=== PATIENT | female | born 1965 | race Caucasian/White ===

== ENCOUNTER 2018-07-04 13:16 | Inpatient (IN) | payer MEDICAID ==
--- NOTE | 2018-07-04 13:20 | C.PDOC ---
History Of Present Illness 53 y/o female, w/PMhx of bipolar disorder, suicide attempt, mitral valve prolapse, and cholecystectomy, presents to the ER for suicidal ideation and worsening bipolar disorder symptoms. Patient states that she was not able to sleep last night, in a manic phase similiar to her previous bipolar episodes. Patient reports that she has been thinking about hurting herself. She notes that she would like to "jump off the [place] in [place]." Denies having active suicide attempt, over-ingestion of medications, fever,chills, headache, neck stiffness, CP,SOB, abdominal pain, and GI bleeding. No GI or complaints. No physical complaints. Time Seen by Provider: 07/04/18 13:20 Chief Complaint (Nursing): Psychiatric Evaluation History Per: Patient History/Exam Limitations: no limitations Onset/Duration Of Symptoms: Days Current Symptoms Are (Timing): Still Present Severity: Moderate Past Medical History Reviewed: Historical Data, Nursing Documentation, Vital Signs - Medical History PMH: Mitral Valve Prolapse Family History: States: Unknown Family Hx Review Of Systems Constitutional: Negative for: Fever, Chills, Weakness, Malaise, Weight loss Eyes: Negative for: Pain, Vision Change, Conjunctivae Inflammation, Eyelid Inflammation ENT: Negative for: Ear Pain, Ear Discharge, Nose Pain, Nose Congestion, Mouth Pain, Mouth Swelling, Throat Pain Cardiovascular: Negative for: Chest Pain, Palpitations, Orthopnea, Edema, Light Headedness Respiratory: Negative for: Cough, Shortness of Breath, Hemoptysis, SOB with Excertion, Pleuritic Pain, Wheezing Gastrointestinal: Negative for: Nausea, Vomiting, Abdominal Pain, Diarrhea, Constipation, Melena, Hematochezia, Hematemesis Genitourinary: Negative for: Dysuria, Frequency, Incontinence, Hematuria, Vaginal Discharge, Vaginal Bleeding, Pelvic Pain Musculoskeletal: Negative for: Neck Pain, Shoulder Pain, Arm Pain, Back Pain, Hand Pain, Leg Pain Skin: Negative for: Rash, Lesions Neurological: Negative for: Weakness, Numbness, Seizures, Altered Mental Status, Headache Psych: Positive for: Suicidal ideation. Negative for: Anxiety, Depression Physical Exam - Physical Exam Appears: Well, Non-toxic, No Acute Distress Skin: Normal Color, Warm, Dry Head: Atraumatic, Normacephalic Eye(s): bilateral: Normal Inspection, PERRL, EOMI Ear(s): Bilateral: Normal Nose: Normal Oral Mucosa: Moist Tongue: Normal Appearing Lips: Normal Appearing Gingiva: Normal Appearing Throat: Normal, Erythema Neck: Normal, Normal ROM, Supple, Other (no meningeal signs) Lymphatic: Normal Exam, No Adenopathy Chest: Symmetrical Cardiovascular: Rhythm Regular, No Edema, No Friction Rub, No Murmur, No JVD Respiratory: Normal Breath Sounds, No Rales, No Rhonchi, No Wheezing Gastrointestinal/Abdominal: Normal Exam, Soft, No Tenderness, No Guarding, No Rebound Back: Normal Inspection, No CVA Tenderness, No Vertebral Tenderness, No Decreased ROM Extremity: Normal ROM, No Tenderness, No Swelling Extremity: Bilateral: Atraumatic Neurological/Psych: Oriented x3, Normal Speech, Normal Cognition, Normal Cranial Nerves, No Cerebellar Signs, Normal Motor, Normal Sensation Gait: Steady Extremity: Right: No Drift, Left: No Drift ED Course And Treatment - Laboratory Results Result Diagrams: 07/04/18 13:45 07/04/18 13:45 Medical Decision Making Medical Decision Makin53 y/o female,w/PMhx of bipolar disorder, suicide attempt, mitral valve prolapse, and cholecystectomy, presents to the ER for suicidal ideation and worsening bipolar disorder symptoms. No chest pain, ingestion of any substances or drugs in an OD attempt, shorntess of breath or abdominal pain. No meningeal signs. Normal neuro exam. No signs of trauma. Impression: Suicidal Ideation vs Worsening Bipolar Disorder Plan: --Labs --UA --CRISIS --1:1 Obs Updates: 13:33 Case discussed with CRISIS.CRISIS will evaluate patient. 1610 labs largely unremarkable UTI on labs, pt denies any dysuria however. No CVAT or back pain no vaginal d/c will rx medically clear 1615 appreciate consult w/ CRISIS: to be admitted to Dr. Vargas service pt in [facility], agreeable to plan Disposition - Disposition Disposition Time: 16:15 Condition: STABLE Forms: [facility] (Mongolian) - Clinical Impression Clinical Impression: UTI (urinary tract infection), MDD (major depressive disorder) - Scribe Statement The provider has reviewed the documentation as recorded by the Tony Grider Provider Attestation: All medical record entries made by the Scribe were at my direction and personally dictated by me. I have reviewed the chart and agree that the record accurately reflects my personal performance of the history, physical exam, medical decision making, and the department course for this patient. I have also personally directed, reviewed, and agree with the discharge instructions and disposition.
[2018-07-04 13:22] VITALS: BMI 22.7
[2018-07-04 13:49] LABS: BASO % 0.8 % (0.0-2.0); EOS % 0.8 % (0.0-4.0); HEMOGLOBIN 12.5 g/dL (11.0-16.0); LYMPH # 2.6 K/uL (1.0-4.3); LYMPH % 44.9 % (20.0-40.0); MEAN CELL VOLUME 90.3 fL (81.0-99.0); MEAN CORPUSCULAR HEMOGLOBIN 30.6 pg (27.0-31.0); MEAN CORPUSCULAR HGB CONC 33.9 g/dL (33.0-37.0); MEAN PLATELET VOLUME 9.6 fL (7.2-11.7); MONO # 0.5 K/uL (0.0-0.8); NEUT # 2.6 K/uL (1.8-7.0); NEUT % 45.5 % (50.0-75.0); RBC 4.1 Mil/uL (3.80-5.20); RED CELL DISTRIBUTION WIDTH 14.6 % (11.5-14.5); WHITE BLOOD COUNT 5.7 K/uL (4.8-10.8)
[2018-07-04 13:52] LABS: SQUAMOUS EPITHIAL 1 /hpf (0-5); URINE BACTERIA RARE (<OCC); URINE BILIRUBIN NEGATIVE (NEGATIVE); URINE BLOOD NEGATIVE (NEGATIVE); URINE COLOR Yellow (YELLOW); URINE GLUCOSE (UA) NORMAL (Normal); URINE LEUKOCYTE ESTERASE 3+ Leu/uL (Negative); URINE PROTEIN NEGATIVE (NEGATIVE); URINE UROBILINOGEN NORMAL mg/dL (0.2-1.0)
[2018-07-04 13:54] LABS: URINE CLARITY SLHAZY (Clear)
[2018-07-04 14:03] LABS: ACETAMINOPHEN < 10.0 ug/mL (10.0-30.0); SALICYLATE < 1.0 {null, mg/dL 1}
[2018-07-04 14:05] LABS: ALB/GLOB RATIO 1.6 (1.0-2.1); ALBUMIN 4.7 g/dL (3.5-5.0); ALT/SGPT 8 U/L (9-52); AST/SGOT 26 U/L (14-36); BLOOD UREA NITROGEN 15 mg/dL (7-17); CALCIUM 10.9 mg/dl (8.6-10.4); GFR NON-AFRICAN AMERICAN > 60
[2018-07-04 14:14] LABS: BARBITURATES, UR NEGATIVE (NEGATIVE); BENZODIAZEPINES, UR NEGATIVE (NEGATIVE); OPIATES, UR NEGATIVE (NEGATIVE); PHENCYCLIDINE, UR NEGATIVE (NEGATIVE)
[2018-07-04 17:25] VITALS: O2SAT 99
--- NOTE | 2018-07-04 20:10 | PCM.BM ---
<Zach Gary - Last Filed: 07/04/18 20:07> Treatment Plan Problems - Problems identified on initial assessmt Hopelessness/Helplessness Date Initiated: 07/04/18 Time Initiated: 20:09 Assessment reference: NA Suicidal ideation Date Initiated: 07/04/18 Time Initiated: 20:09 Assessment reference: NA Treatment assets and liabiliti Patient Assests: cooperative, educated, self-reliant, ADL independent, physically healthy, negotiates basic needs, cognitively intact Patient Liabilities: live alone (Lives alone with no support), financial problems (Unemployed), poor support system (Family lives far) - Milieu Protocol Maintain good personal hygiene: daily Encourage regular showers, daily Remind patient to perform daily oral care, every shift Assist patient to perform ADL's Conduct patient checks and document Observation sheet: Q15 minutes (For safety) Maintain personal safety: every shift Educate patient to report safety concerns to staff, every shift Monitor environment for contraband/sharps Medication safety: Monitor for expected outcome, potential side effects: every shift, Assess barriers to learning: every shift, Assess readiness for medication education: every shift <Mir Jeter - Last Filed: 07/06/18 10:38> - Diagnosis (1) Bipolar disorder, current episode mixed, severe, without psychotic features Status: Acute Interventions: 07/06/18 10:38 * Assess/adjust medications daily and /or as needed * See patient on an individual basis 7x/week to assess level of manic behaviors and stability * Discuss risks, benefits, side effects and alternatives of medications * <Jo Dan - Last Filed: 07/06/18 12:02> Family Contact Family involvement: Famliy/SO not involved Family contact: Patient declines to allow family contact at present - Goals for Treatment Patient goals for treatment: "I am going [facility] to [facility]." Discharge/Continuing Care - Education Needs Education Needs: Patient Medication, Patient Diagnosis/Disease Process, Patient Coping Skills, Patient Placement options, Patient Community resources - Discharge Discharge Criteria: Free of Suicidal thoughts, Ability to care for self, No longer exhibiting s/s of withdrawal, Reduction of target symptoms Discharge to:: Home - Treatment Team Participation Discussed with Family/SO: No Was Patient/Family/SO present at Treatment Team Meeting: Yes
[2018-07-05] MEDS: buPROPion 150 mg/24 Hours XL Tab PO SCH (10:46)
--- NOTE | 2018-07-05 10:46 | PCM.PSYCH ---
Initial Psychiatric Evaluation - Initial Psychiatric Evaluation Type of Admission: Voluntary Legal Status: Capacity Chief Complaint (in patient's own words): I was feeling increasingly depressed and suicidal. History of Present Illness and Precipitating Events: Patient is a 53 years old female, who was admitted because of increasingly depressed mood and suicidal ideation. Patient reports a long history of bipolar disorder. She denies any past history of any inpatient psychiatric hospitalizations. However she reports history of follow-up with [facility]. She reports that her bipolar disorder is getting worse. Yesterday she became increasingly irritable, depressed and suicidal, so she came to the hospital to get help. She has 2 past suicide attempts, in 2017 she attempted to drink 4 bottles of wine and fall downstairs. She reports that day before yesterday, she wanted to jump off [place], but then she changed her mind. 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 She stated she felt she had nothing to live for after loosing her job, and did not have a family or children due to focusing on her career. Currently patient lives alone and will be applying for disability. She currently reports feeling paranoid, hopeless and helpless. She reports poor sleep, poor appetite and decreased energy. She also reports racing thoughts, flight of ideas, irritability and agitation. She also reports anxiety and panic attacks. She denies any drinking or any substance abuse. Past medical history None reported Current Medications: Active Medications Generic Name Dose Route Start Last Admin Trade Name Freq PRN Reason Stop Dose Admin Bupropion HCl 150 mg 07/05/18 10:00 Wellbutrin Xl PO DAILY JOELLE Clonazepam 1 mg 07/04/18 22:15 07/04/18 22:40 Klonopin PO 1 mg BID JOELLE Administration Hydroxyzine HCl 25 mg 07/04/18 20:21 07/05/18 03:33 Atarax PO 25 mg Q6 PRN Administration Anxiety Ibuprofen 400 mg 07/04/18 22:19 Motrin Tab PO Q6 PRN Pain, moderate (4-7) Influenza Virus Vaccine 60 mcg 07/06/18 10:00 Flucelvax Quad 5008-6230 Syr IM 07/06/18 10:01 .ONCE ONE [place] Carbonate 300 mg 07/04/18 23:10 07/04/18 23:38 [place] Carbonate 300mg PO 300 mg TID JOELLE Administration Nitrofurantoin Macrocrystals 100 mg 07/04/18 22:15 07/04/18 22:40 Macrobid PO 07/09/18 10:00 Not Given Q12H [facility] Protocol Pneumococcal Polyvalent Vaccine 0.5 ml 07/06/18 10:00 Pneumovax 23 Vaccine IM 07/06/18 10:01 .ONCE ONE Zolpidem Tartrate 5 mg 07/04/18 22:14 07/04/18 22:40 Ambien PO 5 mg HS PRN Administration Insomnia Past Psychiatric History - Past Psychiatric History Previous Treatment History: None Pertinent Medical Hx (Current Medical&Sleep Prob, Allergies): Allergies Allergy/AdvReac Type Severity Reaction Status Date / Time No Known Allergies Allergy Verified 07/04/18 13:21 Clonazepam [Klonopin] 1 mg PO BID 07/04/18 Divalproex [Depakote ER] 2 tab PO HS 07/04/18 Zolpidem [Ambien] 10 mg PO HS 07/04/18 buPROPion XL [Wellbutrin XL] 300 mg PO AMHS 07/04/18 Review of Systems - Review of Systems All systems: reviewed and no additional remarkable complaints except - Psychiatric Psychiatric: Anxiety, Irritability, Mood Swings, Suicidal Ideation. absent: Auditory Hallucinations Mental Status Examination - Personal Presentation Personal Presentation: Looks stated age - Affect Affect: Broad - Motor Activity Motor Activity: Psychomotor Agitation - Reliability in Providing Information Reliability in Providing Information: Fair - Speech Speech: Organized - Mood Mood: Anxious - Formal Thought Process Formal Thought Process: Flight of ideas, Circumstantial - Obsessions/Compulsions Obsessions: No Compulsions: No - Cognitive Functions Orientation: Person, Place, Situation, Time Sensorium: Alert Attention/Concentration: Attentive Abstract Thinking: [place] Estimate of Intelligence: Below average Judgement: Imparied, as evidence by: Poor judgement, Imparied, as evidence by: Lack of insight into illness - Risk Risk: Suicidal, Diminished functioning - Limitations Limitations: Living alone DSM 5 DX - DSM 5 DSM 5 Diagnosis: Bipolar disorder mixed severe without psychotic features - Recommended/Plan of Treatment Treatment Recommendations and Plan of Treatment: Bipolar disorder mixed severe without psychotic features CBT Psychoeducation Supportive therapy and group therapy Reduce Wellbutrin -with plan to stop Discontinue lithium Lamictal for mood Klonopin for anxiety Ambien for sleep
[2018-07-06] MEDS ORDERED: Pneumococcal 23-Valent Vaccine IM ONE (10:00)
[2018-07-06] MEDS ORDERED: Influenza Vaccine 60 mcg/0.5 mL SYR (4YR UP) IM ONE (10:00)
[2018-07-06] MEDS: buPROPion 150 mg/24 Hours XL Tab PO SCH (10:32)
--- NOTE | 2018-07-06 13:00 | PCM.PYCHPN ---
Psychiatric Progress Note - Psychiatric Progress Note Patient seen today, length of contact: 15 MIN Patient Chief Complaint: I was feeling increasingly depressed. Problems Identified/Issues Discussed: Patient was seen and evaluated, chart reviewed and discussed with staff. Patient still reports depressed mood, at times feelings of hopelessness and helplessness. She is reporting racing thoughts, flight of ideas, poor sleep and poor appetite. She reports improvement in her suicidal ideation. She is starting medication but denies any side effect. Symptoms are improving gradually but she needs to stay longer for further stabilization. Supportive therapy was provided. Medication Change: Yes Medical Record Reviewed: Yes Mental Status Examination - Cognitive Function Orientation: Person, Place, Situation, Time Memory: Intact Attention: WNL Concentration: Poor Association: WNL Fund of Knowledge: Poor - Mood Mood: Anxious - Affect Affect: Broad - Speech Speech: Soft - Formal Thought Process Formal Thought Process: Flight of ideas, Circumstantial - Suicidal Ideation Suicidal Ideation: No - Homicidal Ideation Homicidal Ideation: No Goal/Treatment Plan - Goal/Treatment Plan Need for Continued Stay: Remain at risks for inpatient hospitalization Progress Toward Problem(s) and Goals/Treatment Plan: Bipolar disorder mixed severe without psychotic features -CBT -Psychoeducation -Supportive therapy and group therapy -Reduce Wellbutrin -with plan to stop -Discontinue lithium -Lamictal for mood -Klonopin for anxiety -Ambien for sleep
[2018-07-06] MEDS: Magnesium Hydroxide Susp 30 ml UD PO PRN (17:36)
[2018-07-07] MEDS: Magnesium Hydroxide Susp 30 ml UD PO PRN (09:56)
--- NOTE | 2018-07-08 23:29 | PCM.PYCHPN ---
Psychiatric Progress Note - Psychiatric Progress Note Patient seen today, length of contact: 15 MIN Patient Chief Complaint: I m feeling little better. Problems Identified/Issues Discussed: Patient was seen and evaluated, chart reviewed and discussed with staff. He reports improvement in the racing thoughts, irritability and agitation. She reports some improvement and reports improvement in the feelings of hopelessness and helplessness. She denies any auditory hallucinations or any paranoia. She reports improvement in her suicidal ideation. She is starting medication but denies any side effect. Symptoms are improving gradually but she needs to stay longer for further stabilization. Supportive therapy was provided. Medication Change: Yes Medical Record Reviewed: Yes Mental Status Examination - Cognitive Function Orientation: Person, Place, Situation, Time Memory: Intact Attention: WNL Concentration: Poor Association: WNL Fund of Knowledge: Poor - Mood Mood: Anxious - Affect Affect: Broad - Speech Speech: Soft - Formal Thought Process Formal Thought Process: Flight of ideas, Circumstantial - Suicidal Ideation Suicidal Ideation: No - Homicidal Ideation Homicidal Ideation: No Goal/Treatment Plan - Goal/Treatment Plan Need for Continued Stay: Remain at risks for inpatient hospitalization Progress Toward Problem(s) and Goals/Treatment Plan: Bipolar disorder mixed severe without psychotic features -CBT -Psychoeducation -Supportive therapy and group therapy -Stop Wellbutrin -Increase Lamictal for mood -Klonopin for anxiety -Ambien for sleep
[2018-07-09] MEDS: Magnesium Hydroxide Susp 30 ml UD PO PRN (12:15)
[2018-07-11 06:23] VITALS: BP 112/67; PULSE 76; RESP 18; TEMP 98.1
--- NOTE | 2018-07-11 06:35 | PCM.PYCHPN ---
Psychiatric Progress Note - Psychiatric Progress Note Patient seen today, length of contact: 15 MIN Patient Chief Complaint: I ITCH Problems Identified/Issues Discussed: PT SEEN AND EXAMINED DISCUSSED WITH STAFF DISCUSSED WITH PT RASH MAY BE DUE TO LAMICTAL WILL STOP LAMICTAL AND START OTHER MEDS Medical Problems: PRURITUS Diagnostic Results: REVIEWED DSM 5 Symptoms Update: MOOD SWINGS Medication Change: Yes Medical Record Reviewed: Yes Mental Status Examination - Cognitive Function Orientation: Person, Place, Situation, Time Memory: Intact Attention: WNL Concentration: Poor Association: WNL Fund of Knowledge: Poor - Mood Mood: Anxious - Affect Affect: Broad - Speech Speech: Soft - Formal Thought Process Formal Thought Process: Flight of ideas, Circumstantial - Suicidal Ideation Suicidal Ideation: No - Homicidal Ideation Homicidal Ideation: No Goal/Treatment Plan - Goal/Treatment Plan Need for Continued Stay: Remain at risks for inpatient hospitalization
--- NOTE | 2018-07-11 06:40 | PCM.PYCHPN ---
Psychiatric Progress Note - Psychiatric Progress Note Patient seen today, length of contact: 15 MIN Patient Chief Complaint: I ITCH Problems Identified/Issues Discussed: PT SEEN AND EXAMINED DISCUSSED STAFF PT HAS RASH ON LAMICTAL WILL STOP LAMICTALSTART TRILEPTAL CYMBALTA Medical Problems: PRURITUS Diagnostic Results: REVIEWED DSM 5 Symptoms Update: MOOD SWINGS Medication Change: Yes (STOP LAMICTAL START TRILEPTAL CYMBALTA) Medical Record Reviewed: Yes Mental Status Examination - Cognitive Function Orientation: Person, Place, Situation, Time Memory: Intact Attention: WNL Concentration: Poor Association: WNL Fund of Knowledge: Poor - Mood Mood: Anxious - Affect Affect: Broad - Speech Speech: Soft - Formal Thought Process Formal Thought Process: Flight of ideas, Circumstantial - Suicidal Ideation Suicidal Ideation: No - Homicidal Ideation Homicidal Ideation: No Goal/Treatment Plan - Goal/Treatment Plan Need for Continued Stay: Remain at risks for inpatient hospitalization Progress Toward Problem(s) and Goals/Treatment Plan: BIPOLAR DISORDER STOP LAMICTAL START TRILEPTAL CYMBALTA Estimated Date of D/C: 07/13/18 - Smoking Cessation Smoking Cessation Initiated: No
--- NOTE | 2018-07-11 06:49 | PCM.PYCHPN ---
Psychiatric Progress Note - Psychiatric Progress Note Patient seen today, length of contact: 15 MIN Patient Chief Complaint: I FEEL BETTER Problems Identified/Issues Discussed: PT SEEN AND EXAMINED DISCUSSED WITH STAFF DISCUSSED WITH PT MATURATION OF THE DISEASE Medical Problems: NOTHING ACUTE Diagnostic Results: REVIEWED DSM 5 Symptoms Update: LESS MOOD SWINGS Medication Change: Yes (STOP LAMICTAL START TRILEPTAL CYMBALTA) Medical Record Reviewed: Yes Mental Status Examination - Cognitive Function Orientation: Person, Place, Situation, Time Memory: Intact Attention: WNL Concentration: WNL Association: WNL Fund of Knowledge: WNL - Mood Mood: Anxious - Affect Affect: Broad - Speech Speech: Appropriate, Soft - Formal Thought Process Formal Thought Process: No Impairment, Flight of ideas, Circumstantial - Suicidal Ideation Suicidal Ideation: No - Homicidal Ideation Homicidal Ideation: No Goal/Treatment Plan - Goal/Treatment Plan Need for Continued Stay: Remain at risks for inpatient hospitalization Progress Toward Problem(s) and Goals/Treatment Plan: BIPOLAR DISORDER STOP LAMICTAL START TRILEPTAL CYMBALTA Estimated Date of D/C: 07/13/18 - Smoking Cessation Smoking Cessation Initiated: No
--- NOTE | 2018-07-11 06:58 | PCM.PYCHPN ---
Psychiatric Progress Note - Psychiatric Progress Note Patient seen today, length of contact: 15 MIN Patient Chief Complaint: I HAVE A RASH Problems Identified/Issues Discussed: PT SEEN AND EXAMINED DISCUSSED WITH STAFF DISCUSSED WITH PT RISK OF LAMICTAL WITH RASH WILL STOP LAMICTAL Medical Problems: RASH Diagnostic Results: REVIEWED Medication Change: Yes Medical Record Reviewed: Yes Mental Status Examination - Cognitive Function Orientation: Person, Place, Situation, Time Memory: Intact Attention: WNL Concentration: Poor Association: WNL Fund of Knowledge: Poor - Mood Mood: Anxious - Affect Affect: Broad - Speech Speech: Soft - Formal Thought Process Formal Thought Process: Flight of ideas, Circumstantial - Suicidal Ideation Suicidal Ideation: No - Homicidal Ideation Homicidal Ideation: No Goal/Treatment Plan - Goal/Treatment Plan Need for Continued Stay: Remain at risks for inpatient hospitalization
--- NOTE | 2018-07-11 10:26 | PCM.PYCHDC ---
Mental Status Examination - Mental Status Examination Orientation: Person, Place, Situation, Time Memory: Intact Mood: Neutral Affect: Constricted Speech: Soft Attention: WNL Concentration: WNL Association: WNL Fund of Knowledge: WNL Formal Thought Process: No Impairment Description of patient's judgement and insight: good, fair Psychotic Thoughts and Behaviors: denies any AVH Suicidal Ideation: No Current Homicidal Ideation?: No Discharge Summary - Discharge Note Reason for Hospitalization: Patient is a 53 years old female, who was admitted because of increasingly depressed mood and suicidal ideation. Patient reports a long history of bipolar disorder. She denies any past history of any inpatient psychiatric hospitalizations. However she reports history of follow-up with [facility]. She reports that her bipolar disorder is getting worse. Yesterday she became increasingly irritable, depressed and suicidal, so she came to the hospital to get help. She has 2 past suicide attempts, in 2017 she attempted to drink 4 bottles of wine and fall downstairs. She reports that day before yesterday, she wanted to jump off hillary, but then she changed her mind. 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 She stated she felt she had nothing to live for after loosing her job, and did not have a family or children due to focusing on her career. Currently patient lives alone and will be applying for disability. She currently reports feeling paranoid, hopeless and helpless. She reports poor sleep, poor appetite and decreased energy. She also reports racing thoughts, flight of ideas, irritability and agitation. She also reports anxiety and panic attacks. She denies any drinking or any substance abuse. Consultations:: List each consultation separately and include: 1. Reason for request. 2. Findings. 3. Follow-up Summary of Hospital Course include:: 1. Description of specific treatment plan utilized for patients during their course of treatmen. 2. Summarize the time- course for resolution of acute symptoms and/or regressed behaviors. 3. Describe issues identified and worked on during hospitalization. 4. Describe medication utilized. 5. Describe medical problems identified and treated. 6. Reassessment of suicide risk Summary of Hospital Course: Patient is a 53 years old female, who was admitted because of increasingly depressed mood and suicidal ideation. Patient reports a long history of bipolar disorder. She denies any past history of any inpatient psychiatric hospitalizations. However she reports history of follow-up with [facility]. She reports that her bipolar disorder is getting worse. Yesterday she became increasingly irritable, depressed and suicidal, so she came to the hospital to get help. She has 2 past suicide attempts, in 2017 she attempted to drink 4 bottles of wine and fall downstairs. She reports that day before yesterday, she wanted to jump off hillary, but then she changed her mind. 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 She stated she felt she had nothing to live for after loosing her job, and did not have a family or children due to focusing on her career. Currently patient lives alone and will be applying for disability. She currently reports feeling paranoid, hopeless and helpless. She reports poor sleep, poor appetite and decreased energy. She also reports racing thoughts, flight of ideas, irritability and agitation. She also reports anxiety and panic attacks. She denies any drinking or any substance abuse. Past medical history None reported - Diagnosis (1) Bipolar disorder, current episode mixed, severe, without psychotic features Current Visit: Yes Status: Acute - Final Diagnosis (DSM 5) Condition upon Discharge: STABLE DSM 5: Bipolar disorder mixed severe without psychotic features Disposition: HOME/ ROUTINE Follow-up Treatment Plan: Bipolar disorder mixed severe without psychotic features -CBT -Psychoeducation -Supportive therapy and group therapy -Stop Wellbutrin -Increase Lamictal for mood -Klonopin for anxiety -Ambien for sleep Prescriptions/Medication Reconciliation: DULoxetine [Cymbalta] 30 mg PO DAILY #30 ecc Mirtazapine [Remeron] 15 mg PO HS #30 tab OXcarbazepine [Trileptal] 150 mg PO BID #60 tab Zolpidem [Ambien] 5 mg PO HS PRN 1 Days #14 tab PRN Reason: Insomnia - Smoking Cessation Smoking Cessation Medication prescribed: No - Antipsychotic Medications Pt discharged on 2 or more routine antipsychotic medications: No
== END 2018-07-11 12:11 | disposition home or self-care (01) | DRG 430 ==
LOC: C.ER 13:16 → C.9E 16:31 → C.5E 16:47
PROC: GZ3ZZZZ Medication Management (ICD-10-PCS; principal; 2018-07-04)
PROC: GZHZZZZ Group Psychotherapy (ICD-10-PCS; 2018-07-04)
PROC: GZ56ZZZ Individual Psychotherapy, Supportive (ICD-10-PCS; 2018-07-04)
DX: F31.63 Bipolar disorder, current episode mixed, severe, without psychotic features (principal); R45.851 Suicidal ideations; F41.0 Panic disorder [episodic paroxysmal anxiety]; I34.1 Nonrheumatic mitral (valve) prolapse; L29.9 Pruritus, unspecified; Z91.5 Personal history of self-harm; Z90.49 Acquired absence of other specified parts of digestive tract

== ENCOUNTER 2018-08-24 16:22 | Inpatient (IN) | payer MEDICAID ==
[2018-08-24 16:30] VITALS: BMI 24.3
[2018-08-24 16:46] LABS: BASO # 0.1 K/uL (0.0-0.2); EOS # 0.2 K/uL (0.0-0.7); EOS % 3.3 % (0.0-4.0); HEMOGLOBIN 11.5 g/dL (11.0-16.0); LYMPH # 3.5 K/uL (1.0-4.3); LYMPH % 51.4 % (20.0-40.0); MEAN CELL VOLUME 89.3 fL (81.0-99.0); MEAN CORPUSCULAR HEMOGLOBIN 30.1 pg (27.0-31.0); MEAN CORPUSCULAR HGB CONC 33.7 g/dL (33.0-37.0); MEAN PLATELET VOLUME 8.2 fL (7.2-11.7); MONO # 0.5 K/uL (0.0-0.8); NEUT # 2.5 K/uL (1.8-7.0); NEUT % 36.3 % (50.0-75.0); RBC 3.82 Mil/uL (3.80-5.20); RED CELL DISTRIBUTION WIDTH 13.7 % (11.5-14.5); WHITE BLOOD COUNT 6.8 K/uL (4.8-10.8)
[2018-08-24 16:50] LABS: HCG,QUALITATIVE URINE NEGATIVE (NEGATIVE)
[2018-08-24 16:57] LABS: SQUAMOUS EPITHIAL 11 /hpf (0-5); URINE BACTERIA RARE (<OCC); URINE BILIRUBIN NEGATIVE (NEGATIVE); URINE BLOOD NEGATIVE (NEGATIVE); URINE CLARITY Hazy (Clear); URINE COLOR Yellow (YELLOW); URINE GLUCOSE (UA) NORMAL (Normal); URINE LEUKOCYTE ESTERASE 3+ Leu/uL (Negative); URINE PROTEIN NEGATIVE (NEGATIVE); URINE UROBILINOGEN NORMAL mg/dL (0.2-1.0)
[2018-08-24 17:03] LABS: ACETAMINOPHEN < 10.0 ug/mL (10.0-30.0); SALICYLATE < 1.0 {null, mg/dL 1}
[2018-08-24 17:04] LABS: ALB/GLOB RATIO 1.5 (1.0-2.1); ALBUMIN 4.1 g/dL (3.5-5.0); ALT/SGPT 121 U/L (9-52); AST/SGOT 86 U/L (14-36); BLOOD UREA NITROGEN 19 mg/dL (7-17); CALCIUM 9.6 mg/dl (8.6-10.4); GFR NON-AFRICAN AMERICAN > 60
[2018-08-24 17:18] LABS: BARBITURATES, UR NEGATIVE (NEGATIVE); BENZODIAZEPINES, UR NEGATIVE (NEGATIVE); OPIATES, UR NEGATIVE (NEGATIVE); PHENCYCLIDINE, UR NEGATIVE (NEGATIVE)
--- NOTE | 2018-08-24 17:48 | C.PDOC ---
History Of Present Illness 53-year-old female, whose PMHx includes Bipolar Disorder, presents to the ED for psychiatric evaluation. Patient states that she is depressed and attempted to hang herself 3 days ago via unknown mechanism. Patient denies homicidal id eation. Time Seen by Provider: 08/24/18 16:35 Chief Complaint (Nursing): Psychiatric Evaluation History Per: Patient History/Exam Limitations: no limitations Onset/Duration Of Symptoms: Days (3) Current Symptoms Are (Timing): Still Present Suicide/Self Injury Attempted (Context): Other (hanging (mechanism unknown)) Associated Symptoms: Depression, Suicidal Thoughts, Suicidal Plan Involuntary Hold By: None Recent travel outside of the [place]: No Additional History Per: Patient Past Medical History Reviewed: Historical Data, Nursing Documentation, Vital Signs Vital Signs: Last Vital Signs Temp 98.6 F 08/24/18 16:30 Pulse 98 H 08/24/18 16:30 Resp 18 08/24/18 16:30 BP 127/81 08/24/18 16:30 Pulse Ox 97 08/24/18 16:30 Primary Care Provider: Tamela Trujillo - Medical History PMH: Anxiety, Bipolar Disorder, Depression, Gall Bladder Disease, Mitral Valve Prolapse Denies: Diabetes (Patient denied.), Hepatitis (Patient denied.), HIV (Patient denied.), HTN (Patient denied.), Seizures (Patient denied.), Sexually Transmitted Disease (Patient denied.) Surgical History: Cholecystectomy - [facility] GROUP PSYCHOTHERAPY (07/04/18) INDIVIDUAL PSYCHOTHERAPY, SUPPORTIVE (07/04/18) MEDICATION MANAGEMENT (07/04/18) Family History: States: Unknown Family Hx - Social History Hx Alcohol Use: No Hx Substance Use: No - Immunization History Hx Tetanus Toxoid Vaccination: No Hx Influenza Vaccination: No Hx Pneumococcal Vaccination: No Review Of Systems Psych: Positive for: Depression, Suicidal ideation. Negative for: Other (homicidal ideation ) Physical Exam - Physical Exam Appears: Non-toxic, No Acute Distress, Other (elderly white female, appears older than stated age ) Skin: Normal Color, Warm, Dry Head: Atraumatic, Normacephalic Oral Mucosa: Moist Throat: Other (normal voice ) Neck: Normal ROM, No Midline Cervical Tenderness, No Paracervical Tenderness, Supple Chest: Symmetrical, No Deformity, No Tenderness Respiratory: Normal Breath Sounds, No Rales, No Rhonchi, No Wheezing Extremity: Normal ROM, Capillary Refill (less than 2 seconds ) Neurological/Psych: Oriented x3, Normal Speech, Normal Cognition ED Course And Treatment - Laboratory Results Result Diagrams: 08/24/18 16:43 08/24/18 16:43 Lab Results: Total Bilirubin 0.2 mg/dL (0.2-1.3) 08/24/18 16:43 AST 86 U/L (14-36) H D 08/24/18 16:43 ALT 121 U/L (9-52) H D 08/24/18 16:43 Alkaline Phosphatase 120 U/L (38-126) 08/24/18 16:43 Total Protein 6.8 g/dL (6.3-8.3) 08/24/18 16:43 Albumin 4.1 g/dL (3.5-5.0) 08/24/18 16:43 Globulin 2.7 gm/dL (2.2-3.9) 08/24/18 16:43 Albumin/Globulin Ratio 1.5 (1.0-2.1) 08/24/18 16:43 Urine Color Yellow (YELLOW) 08/24/18 16:43 Urine Clarity Hazy (Clear) 08/24/18 16:43 Urine pH 5.0 (5.0-8.0) 08/24/18 16:43 Ur Specific [place] 1.028 (1.003-1.030) 08/24/18 16:43 Urine Protein Negative mg/dL (NEGATIVE) 08/24/18 16:43 Urine Glucose (UA) Normal mg/dL (Normal) 08/24/18 16:43 Urine Ketones Negative mg/dL (NEGATIVE) 08/24/18 16:43 Urine Blood Negative (NEGATIVE) 08/24/18 16:43 Urine Nitrate Negative (NEGATIVE) 08/24/18 16:43 Urine Bilirubin Negative (NEGATIVE) 08/24/18 16:43 Urine Urobilinogen Normal mg/dL (0.2-1.0) 08/24/18 16:43 Ur Leukocyte Esterase 3+ [place]/uL (Negative) H 08/24/18 16:43 Urine WBC (Auto) 104 /hpf (0-5) H 08/24/18 16:43 Urine RBC (Auto) 6 /hpf (0-3) H 08/24/18 16:43 Ur Squamous Epith Cells 11 /hpf (0-5) H 08/24/18 16:43 Urine Bacteria Rare (<OCC) 08/24/18 16:43 Urine HCG, Qual Negative (NEGATIVE) 08/24/18 16:43 Urine HCG, Qual Negative (NEGATIVE) 08/24/18 16:43 Lab Interpretation: Normal (tox neg.) O2 Sat by Pulse Oximetry: 97 (on RA) Pulse Ox Interpretation: Normal Progress Note: Bloodwork and urinalysis ordered and reviewed. Reevaluation Time: 19:03 Reassessment Condition: Improved Medical Decision Making Medical Decision Making: bipolar ? suicide attempt 3 days ago, no sequela Disposition Doctor Will See Patient In The: Office Counseled Patient/Family Regarding: Studies Performed, Diagnosis - Disposition Disposition: HOSPITALIZED Disposition Time: 19:03 Condition: GOOD Forms: [facility] ([place]) - Clinical Impression Clinical Impression: Bipolar 1 disorder - Scribe Statement The provider has reviewed the documentation as recorded by the Scribe (Darlyn Ponce) Provider Attestation: All medical record entries made by the Scribe were at my direction and personally dictated by me. I have reviewed the chart and agree that the record accurately reflects my personal performance of the history, physical exam, medical decision making, and the department course for this patient. I have also personally directed, reviewed, and agree with the discharge instructions and disposition.
[2018-08-24 19:54] VITALS: O2SAT 98
--- NOTE | 2018-08-24 20:04 | PCM.BM ---
<Lee Suazo - Last Filed: 08/24/18 20:04> Treatment Plan Problems - Problems identified on initial assessmt Hopelessness Date Initiated: 08/24/18 Time Initiated: 20:03 Assessment reference: NA Status: Active Altered Thought Process Date Initiated: 08/24/18 Time Initiated: 20:03 Assessment reference: NA Status: Active Treatment assets and liabiliti Patient Assests: cooperative, educated, self-reliant, ADL independent, physically healthy, negotiates basic needs, cognitively intact Patient Liabilities: poor support system - Milieu Protocol Maintain good personal hygiene: daily Encourage regular showers, daily Remind patient to perform daily oral care, daily Assist patient to perform ADL's Conduct patient checks and document Observation sheet: Q15 minutes Maintain personal safety: every shift Educate patient to report safety concerns to staff, every shift Monitor environment for contraband/sharps Medication safety: Monitor for expected outcome, potential side effects: every shift, Assess barriers to learning: every shift, Assess readiness for medication education: every shift <Mir Jeter - Last Filed: 08/26/18 11:11> - Diagnosis (1) Bipolar disorder, curr episode mixed, severe, with psychotic features Status: Acute Interventions: 08/26/18 11:12 * Assess/adjust medications daily and /or as needed * See patient on an individual basis 7x/week to assess level of manic behaviors and stability * Discuss risks, benefits, side effects and alternatives of medications * <Marely Rehman - Last Filed: 08/26/18 13:31> Family Contact Family involvement: Famliy/SO not involved - Goals for Treatment Patient goals for treatment: "I want to go back to my outpatient program." Discharge/Continuing Care - Education Needs Education Needs: Patient Medication, Patient Coping Skills - Discharge Discharge Criteria: Tolerates medication w/o severe side effects, Reduction of target symptoms Discharge to:: Home - Treatment Team Participation Discussed with Family/SO: No Was Patient/Family/SO present at Treatment Team Meeting: Yes
--- NOTE | 2018-08-25 09:32 | PCM.PSYCH ---
Initial Psychiatric Evaluation - Initial Psychiatric Evaluation Type of Admission: Voluntary Legal Status: Capacity History of Present Illness and Precipitating Events: he patient is a 53 year old white female serl-referred to [facility] seeking admission for the psychatric unit following suicidal ideation/plan/attempt. The patient reported she was diagnoes with bipolar, depression and anxiety in 1996. She reproted 15 years of active [facility]. The patient indicated she stop receiving treatment regularly since 2007 when she moved to [place], and loosing several jobs. The patient indicated she is currently suicidal with plan to hang herselff. She reported having suicidal ideations daily in the past year. She reported 4 previous psychiatric admissions all related to sucidal ideation with attemp. First, [place] 1996 Suicide attempt by attemping to jump in front a bus. Second, [place] 2004 Suicide attempt by attempting to jump off her building roof. Third, [facility] 2016 suicide attempt by attempting to kill herself by alcohol poisoning. fourth, [facility] 2018 suicide by attempting to jum off a kliff around her house. The patient indicated she last attempted suicide on Wednesday by attempting to hang herself in the bathroom. The patient indicated calling brother and being able to avoid hanging herself. The patient reported she is not homocidal, however reported havign auditory hallucinations by rika mother telling her to kill herself on Wednesday and hearing friend's voices talking "down" on her. The patient reported experiencing auditory hallucination for the past 5-6 years, she denies command to hurt others. Patient identified her protective factor as "part of me want to live and still have hope". SHe identifies her triggers as being unemployable, having no children or , she verbalized having a very successful chareer and when was let go she fel like she didn't have a purpose in life". The patient denies having any family history of mental health, however believes her father suffers from depression. THe patient indicated she currently sees Dr. Vargas at [facility] and does not attend psychotherapy. The patient reproted she is taking Trileptal, Klonopin, Remeran, Ambien. and indicated being compliant with medication. The patient denies any susbtance use. The patient denies having any medical problems or taking medication for any medical problem. Current Medications: Active Medications Generic Name Dose Route Start Last Admin Trade Name Freq PRN Reason Stop Dose Admin Clonazepam 1 mg 08/25/18 10:00 Klonopin PO BID JOELLE Mirtazapine 15 mg 08/24/18 22:00 08/24/18 21:52 Remeron PO 15 mg HS [facility] Administration Oxcarbazepine 150 mg 08/25/18 10:00 Trileptal PO BID JOELLE Trazodone HCl 50 mg 08/24/18 21:27 Desyrel PO HS PRN Insomnia Zolpidem Tartrate 5 mg 08/24/18 22:00 08/24/18 21:52 Ambien PO 5 mg HS JOELLE Administration Past Psychiatric History - Past Psychiatric History Previous Treatment History: Inpatient Pertinent Medical Hx (Current Medical&Sleep Prob, Allergies): Allergies Allergy/AdvReac Type Severity Reaction Status Date / Time lamotrigine [From Lamictal] Allergy RASH Verified 08/24/18 21:14 venlafaxine [From Effexor] Allergy RASH Verified 08/24/18 21:14 ziprasidone [From Geodon] Allergy RASH Verified 08/24/18 21:14 Clonazepam [Klonopin] 1 mg PO BID 07/04/18 Zolpidem [Ambien] 10 mg PO HS 07/04/18 Mirtazapine [Remeron] 15 mg PO HS #30 tab 07/11/18 OXcarbazepine [Trileptal] 150 mg PO BID #60 tab 07/11/18 Review of Systems - Review of Systems All systems: reviewed and no additional remarkable complaints except - Psychiatric Psychiatric: Anxiety, Auditory Hallucinations, Irritability, Mood Swings, Suicidal Ideation Mental Status Examination - Personal Presentation Personal Presentation: Looks stated age - Affect Affect: Broad - Motor Activity Motor Activity: Psychomotor Agitation - Reliability in Providing Information Reliability in Providing Information: Poor, due to alteration in thoughts - Speech Speech: Organized - Mood Mood: Depressed, Anxious - Formal Thought Process Formal Thought Process: Flight of ideas - Obsessions/Compulsions Obsessions: No Compulsions: No - Cognitive Functions Orientation: Person, Place, Situation, Time Sensorium: Alert Attention/Concentration: Attentive Abstract Thinking: [place] Estimate of Intelligence: Below average Judgement: Imparied, as evidence by: Poor judgement, Imparied, as evidence by: Lack of insight into illness - Risk Risk: Suicidal, Diminished functioning - Limitations Limitations: Living alone DSM 5 DX - Recommended/Plan of Treatment Treatment Recommendations and Plan of Treatment: Bipolar disorder mixed severe without psychotic features Sedative /Hypnotic use disorder severe CBT Psychoeducation Supportive therapy and group therapy Stop Seroquel Stop Klonopin Abilify for mood stabilization Trazodone for insomnia Ambien for insomnia Hydroxyzine for anxiety Neurontin for augmentation Mirtazapine for depression trileptal for mood stabilization
[2018-08-26] MEDS ORDERED: Magnesium Hydroxide Susp 30 ml UD PO PRN (11:21)
[2018-08-29 06:30] VITALS: BP 115/72; PULSE 85; RESP 18; TEMP 98
--- NOTE | 2018-08-29 09:51 | PCM.PYCHPN ---
Psychiatric Progress Note - Psychiatric Progress Note Patient seen today, length of contact: 15 min Patient Chief Complaint: I am feeling little better.' Problems Identified/Issues Discussed: Patient seen and evaluated, chart reviewed and discussed with the nurse. Pt still reports depressed mood but reports some improvement in the feelings of hopelessness and helplessness. Patient remained isolated, confined and withdrawn. She reports irritability, agitation and racing thoughts. She is taking medications and denies any side effects Symptoms are improving but she needs more time for stabilization. Supportive therapy and psychoeducation were given. Medication Change: Yes Medical Record Reviewed: Yes Mental Status Examination - Cognitive Function Orientation: Person, Place, Situation, Time Memory: Intact Attention: WNL Concentration: Poor Association: WNL Fund of Knowledge: Poor - Mood Mood: Depressed, Anxious - Affect Affect: Broad - Speech Speech: Soft - Formal Thought Process Formal Thought Process: Flight of ideas - Suicidal Ideation Suicidal Ideation: No - Homicidal Ideation Homicidal Ideation: No Goal/Treatment Plan - Goal/Treatment Plan Need for Continued Stay: Remain at risks for inpatient hospitalization Progress Toward Problem(s) and Goals/Treatment Plan: Bipolar disorder mixed severe without psychotic features Sedative /Hypnotic use disorder severe CBT Psychoeducation Supportive therapy and group therapy Stop Seroquel Stop Klonopin Abilify for mood stabilization Trazodone for insomnia Ambien for insomnia Hydroxyzine for anxiety Neurontin for augmentation Mirtazapine for depression trileptal for mood stabilization
--- NOTE | 2018-08-29 10:35 | PCM.PYCHPN ---
Psychiatric Progress Note - Psychiatric Progress Note Patient seen today, length of contact: 15 min Patient Chief Complaint: I am feeling little better.' Problems Identified/Issues Discussed: Patient seen and evaluated, chart reviewed and discussed with the nurse. She reports some improvement in the irritability, agitation and racing thoughts. Pt also reports some improvement in the feelings of hopelessness and helplessness. Patient started coming out of her room. She is taking medications and denies any side effects Symptoms are improving but she needs more time for stabilization. Supportive therapy and psychoeducation were given. Medication Change: Yes Medical Record Reviewed: Yes Mental Status Examination - Cognitive Function Orientation: Person, Place, Situation, Time Memory: Intact Attention: WNL Concentration: Poor Association: WNL Fund of Knowledge: Poor - Mood Mood: Depressed, Anxious - Affect Affect: Broad - Speech Speech: Soft - Formal Thought Process Formal Thought Process: Flight of ideas - Suicidal Ideation Suicidal Ideation: No - Homicidal Ideation Homicidal Ideation: No Goal/Treatment Plan - Goal/Treatment Plan Need for Continued Stay: Remain at risks for inpatient hospitalization Progress Toward Problem(s) and Goals/Treatment Plan: Bipolar disorder mixed severe without psychotic features Sedative /Hypnotic use disorder severe CBT Psychoeducation Supportive therapy and group therapy Abilify for mood stabilization Trazodone for insomnia Ambien for insomnia Hydroxyzine for anxiety Neurontin for augmentation Mirtazapine for depression trileptal for mood stabilization
--- NOTE | 2018-08-29 10:40 | PCM.PYCHDC ---
Mental Status Examination - Mental Status Examination Orientation: Person, Place, Situation, Time Memory: Intact Mood: Neutral Affect: Constricted Speech: Soft Attention: WNL Concentration: WNL Association: WNL Fund of Knowledge: WNL Formal Thought Process: No Impairment Description of patient's judgement and insight: good, fair Psychotic Thoughts and Behaviors: denies any AVH Suicidal Ideation: No Current Homicidal Ideation?: No Discharge Summary - Discharge Note Consultations:: List each consultation separately and include: 1. Reason for request. 2. Findings. 3. Follow-up Summary of Hospital Course include:: 1. Description of specific treatment plan utilized for patients during their course of treatmen. 2. Summarize the time- course for resolution of acute symptoms and/or regressed behaviors. 3. Describe issues identified and worked on during hospitalization. 4. Describe medication utilized. 5. Describe medical problems identified and treated. 6. Reassessment of suicide risk Summary of Hospital Course: he patient is a 53 year old white female serl-referred to [facility] seeking admission for the psychatric unit following suicidal ideation/plan/attempt. The patient reported she was diagnoes with bipolar, depression and anxiety in 1996. She reproted 15 years of active treatment both psychotherapy and psychiatric-medicaiton monitoring. The patient indicated she stop receiving treatment regularly since 2007 when she moved to [place], and loosing several jobs. The patient indicated she is currently suicidal with plan to hang herselff. She reported having suicidal ideations daily in the past year. She reported 4 previous psychiatric admissions all related to sucidal ideation with attemp. [place], [place] 1996 Suicide attempt by attemping to jump in front a bus. Second, [place] 2004 Suicide attempt by attempting to jump off her building roof. Third, [facility] 2016 suicide attempt by attempting to kill herself by alcohol poisoning. fourth, [address] 2019 suicide by attempting to jum off a kliff around her house. The patient indicated she last attempted suicide on Wednesday by attempting to hang herself in the bathroom. The patient indicated calling brother and being able to avoid hanging herself. The patient reported she is not homocidal, however reported havign auditory hallucinations by rika mother telling her to kill herself on Wednesday and hearing friend's voices talking "down" on her. The patient reported experiencing auditory hallucination for the past 5-6 years, she denies command to hurt others. Patient identified her protective factor as "part of me want to live and still have hope". SHe identifies her triggers as being unemployable, having no children or , she verbalized having a very successful chareer and when was let go she fel like she didn't have a purpose in life". The patient denies having any family history of mental health, however believes her father suffers from depression. THe patient indicated she currently sees Dr. Vargas at [facility] and does not attend psychotherapy. The patient reproted she is taking Trileptal, Klonopin, Remeran, Ambien. and indicated being compliant with medication. The patient denies any susbtance use. The patient denies having any medical problems or taking medication for any medical problem. - Diagnosis (1) Bipolar disorder, curr episode mixed, severe, with psychotic features Current Visit: Yes Status: Acute - Final Diagnosis (DSM 5) Condition upon Discharge: GOOD DSM 5: Bipolar disorder mixed severe without psychotic features Sedative /Hypnotic use disorder severe Disposition: HOME/ ROUTINE Follow-up Treatment Plan: Bipolar disorder mixed severe without psychotic features Sedative /Hypnotic use disorder severe CBT Psychoeducation Supportive therapy and group therapy Stop Seroquel Stop Klonopin Abilify for mood stabilization Trazodone for insomnia Ambien for insomnia Hydroxyzine for anxiety Neurontin for augmentation Mirtazapine for depression trileptal for mood stabilization Prescriptions/Medication Reconciliation: ARIPiprazole [Abilify] 10 mg PO HS #30 tab LORazepam [Ativan] 0.5 mg PO BID PRN #20 tab PRN Reason: Agitation Mirtazapine [Remeron] 15 mg PO HS #30 tab OXcarbazepine [Trileptal] 300 mg PO BID #60 tab Zolpidem [Ambien] 10 mg PO HS #30 tab - Smoking Cessation Smoking Cessation Medication prescribed: No - Antipsychotic Medications Pt discharged on 2 or more routine antipsychotic medications: No
== END 2018-08-29 11:00 | disposition home or self-care (01) | DRG 430 ==
LOC: C.ER 16:22 → C.5E 19:04
PROVIDERS: ADMIT Psychiatry & Neurology Psychiatry; ATTEND Psychiatry & Neurology Psychiatry
PROC: GZ56ZZZ Individual Psychotherapy, Supportive (ICD-10-PCS; principal; 2018-08-24)
DX: F31.64 Bipolar disorder, current episode mixed, severe, with psychotic features (principal); F41.9 Anxiety disorder, unspecified; G47.00 Insomnia, unspecified; I34.1 Nonrheumatic mitral (valve) prolapse